=== PATIENT | male | born 1975 | race Caucasian/White ===

== ENCOUNTER 2021-07-26 13:24 | Emergency (ER) | payer MEDICAID ==
[~2021-07-26] VITALS: Ht 177.8 cm; Wt 93.4 kg
[2021-07-26 13:26] VITALS: BP 104/59
--- NOTE | 2021-07-26 13:37 | NUR ---
TENT 1.
--- NOTE | 2021-07-26 13:44 | NUR ---
COVID PCR SWAB DONE.
--- NOTE | 2021-07-26 13:45 | NUR ---
C/O COUGH, 6/10 SORE THROAT, RUNNUNG NOSE X 4DAYS AND C/O RUN OUT OF MED: AMLODIPNE FOR 4 DAYS. BP 104/59 AT THIS TIME. PMH:HTN
[2021-07-26] MEDS ORDERED: AMLO10TA PO (14:00)
[2021-07-26] MEDS ORDERED: PROM118S5 PO (14:00)
[2021-07-26 14:15] VITALS: BP 104/59
--- NOTE | 2021-07-26 14:16 | NUR ---
Patient discharged with v/s stable. Written and verbal after care instructions given FOR VIRAL ILLNESS AND HYPERTENSION and explained. Patient alert, oriented and verbalized understanding of instructions. Ambulatory with steady gait. All questions addressed prior to discharge. ID band removed. Patient advised to follow up with PMD. Rx of NORVASC AND PROMETHAZINE given. Patient educated on indication of medication including possible reaction and side effects. Opportunity to ask questions provided and answered.
== END 2021-07-26 14:15 | disposition home or self-care (01) ==
LOC: MED 13:24
DX: B34.9 Viral infection, unspecified (principal); Z20.822 Contact with and (suspected) exposure to COVID-19; I10 Essential (primary) hypertension; Z79.899 Other long term (current) drug therapy; Z88.8 Allergy status to other drugs, medicaments and biological substances
CPT/HCPCS: 36415; 99283; U0003

== ENCOUNTER 2021-09-07 16:32 | Emergency (ER) | payer MEDICAID ==
[~2021-09-07] VITALS: Ht 177.8 cm; Wt 96.2 kg
[~2021-09-07 16:32] MED LIST: AMLO10TA PO; PROM118S5 PO
[2021-09-07 16:51] VITALS: BP 155/90
[2021-09-07] MEDS ORDERED: AMLO10TA89 PO (17:20)
--- NOTE | 2021-09-07 17:50 | NUR ---
no nursing interventions needed at this time
--- NOTE | 2021-09-07 17:55 | NUR ---
Patient discharged with v/s stable. Written and verbal after care instructions given and explained. Patient alert, oriented and verbalized understanding of instructions. Ambulatory with steady gait. All questions addressed prior to discharge. ID band removed. Patient advised to follow up with PMD. Rx of amlodipine (sent) given. Patient educated on indication of medication including possible reaction and side effects. Opportunity to ask questions provided and answered. given follow up care on paperwork
[2021-09-07 18:02] VITALS: BP 155/90
== END 2021-09-07 17:55 | disposition home or self-care (01) ==
LOC: MED 16:32
DX: I10 Essential (primary) hypertension (principal); Z76.0 Encounter for issue of repeat prescription; Z79.899 Other long term (current) drug therapy; Z88.8 Allergy status to other drugs, medicaments and biological substances
CPT/HCPCS: 99281

== ENCOUNTER 2021-10-11 14:01 | Emergency (ER) | payer MEDICAID ==
[~2021-10-11] VITALS: Ht 175.3 cm; Wt 97.5 kg
[~2021-10-11 14:01] MED LIST changes: +AMLO10TA89 PO
[2021-10-11 14:06] VITALS: BP 157/96
[2021-10-11] MEDS ORDERED: ACETAMINOPHEN 325 MG TAB PO ONE (14:30)
[2021-10-11 14:48] LABS: BASOPHILS % (AUTO) 0.7 % (0.0-2.0); EOSINOPHILS # (AUTO) 0.1 K/uL (0-0.4); EOSINOPHILS % (AUTO) 1.5 % (0.0-4.0); HEMATOCRIT 40.1 % (36-52); HEMOGLOBIN 12.7 g/dL (12.0-18.0); LYMPHOCYTES # (AUTO) 2.1 K/uL (2.0-11.5); LYMPHOCYTES % (AUTO) 42.3 % (20.5-51.1); MEAN CORPUSCULAR HEMOGLOBIN 23 pg (27-31); MEAN CORPUSCULAR HGB CONC 32 g/dL (33-37); MONOCYTES # (AUTO) 0.5 K/uL (0.8-1.0); MONOCYTES % (AUTO) 10.7 % (1.7-9.3); NEUTROPHILS # (AUTO) 2.2 K/uL (1.8-7.7); NEUTROPHILS % (AUTO) 44.8 % (42.2-75.2); PLATELET COUNT (AUTO) 263 K/uL (140-450); RED BLOOD CELL COUNT(AUTO) 5.64 MIL/uL (4.20-6.10); RED CELL DISTRIBUTION WIDTH 15.7 % (11.6-13.7); WHITE BLOOD COUNT (AUTO) 4.9 K/uL (4.8-10.8)
[2021-10-11 15:06] LABS: CARBON DIOXIDE 30.5 mmol/L (21-32); CREATININE 0.6 mg/dL (0.6-1.3); POTASSIUM 4.5 mmol/L (3.5-5.1); TOTAL BILIRUBIN 0.2 mg/dL (0.0-1.0)
[2021-10-11] MEDS ORDERED: AMLO10TA PO (15:35)
--- NOTE | 2021-10-11 15:55 | NUR ---
PT BIB SELF C/O 7/10 HEADACHE S/P MED REFILL FOR HBP, DENIES DIZZINESS OR VISION CHANGES.PT DENIES N/V/D; SKIN IS INTACT, PINK/WARM/DRY; AAOX4, PERRL, WITH EVEN AND STEADY GAIT; LUNGS CLEAR BL, BREATHING UNLABORED; HR EVEN AND REGULAR, BL PERIPHERAL PULSES PRESENT PT DENIES ANY CP, SOB, OR COUGH AT THIS TIME; PT STATES 7/10 PAIN AT THIS TIME; VSS; PATIENT POSITIONED FOR COMFORT; HOB ELEVATED; BEDRAILS UP X2; BED DOWN.
[2021-10-11 16:26] VITALS: BP 157/88
--- NOTE | 2021-10-11 16:38 | NUR ---
Note joonadonis in ED - 10/11/21 at 1638 by [facility] MED REFILL OF AMLODIPINE. STATES HE RECEIVED HIS LAST REFILL HERE AND WAS GIVEN A REFERRAL BUT STATES HE LOST HIS PAPERWORK. REPORTS 12/10 HEADACHE, DENIES DIZZINESS OR VISION CHANGES.
--- NOTE | 2021-10-11 16:38 | NUR ---
Patient discharged with v/s stable. Written and verbal after care instructions given and explained. Patient alert, oriented and verbalized understanding of instructions. Ambulatory with steady gait. All questions addressed prior to discharge. ID band removed. Patient advised to follow up with PMD. Rx of NORVASC given. Patient educated on indication of medication including possible reaction and side effects. Opportunity to ask questions provided and answered.
== END 2021-10-11 16:26 | disposition home or self-care (01) ==
LOC: MED 14:01
DX: R51.9 Headache, unspecified (principal); I10 Essential (primary) hypertension; Z91.048 Other nonmedicinal substance allergy status; Z76.0 Encounter for issue of repeat prescription
CPT/HCPCS: 36415; 80053; 85025; 99283